=== PATIENT | female | born 1980 | race Caucasian/White ===

== ENCOUNTER 2018-06-17 08:52 | Outpatient (CLI) | payer OTHER ==
--- NOTE | 2018-06-17 11:18 | ULT ---
LEFT BREAST ULTRASOUND: Date: 06/17/18 HISTORY: Palpable abnormality in upper outer aspect of left breast. COMPARISON: Mammograms dated 06/17/18 and 07/24/06, and left breast ultrasound dated 02/27/16. TECHNIQUE: Multiplanar Iqbal scale and color Doppler images were obtained in a targeted ultrasound of the upper o uter aspect of the left breast. FINDINGS: There is a well circumscribed hypoechoic mass in the 2 o'clock position of the left breast, approxima tely 3.0 cm from the nipple. This measures 8.0 mm in greatest dimension. This is stable compared to t he prior examination. No suspicious shadowing or suspicious mass is seen. IMPRESSION: The mass in the upper outer aspect of the left breast likely represents either a lymph node or a smal l fibroadenoma. The area of concern, per the patient, is a palpable ridge of tissue and not this mass , which is in a slightly separate area of the breast. BIRADS Category 2 - Benign findings. Annual scr eening mammography is recommended at the age of 40. POS: NIRMAL
== END 2018-06-17 08:53 | disposition home or self-care (01) ==
LOC: BICMAMMO 08:52
PROVIDERS: ATTEND Obstetrics & Gynecology
DX: N63.21 Unspecified lump in the left breast, upper outer quadrant (principal)
CPT/HCPCS: 77066; G0279

== ENCOUNTER 2020-08-04 10:21 | Outpatient (CLI) | payer OTHER | END 2020-08-04 10:22 | disposition home or self-care (01) | LOC: BICMAMMO 10:21 | PROVIDERS: ATTEND Obstetrics & Gynecology | DX: N63.10 Unspecified lump in the right breast, unspecified quadrant (principal); N63.20 Unspecified lump in the left breast, unspecified quadrant | CPT/HCPCS: 77066; G0279 ==